=== PATIENT | female | born 1975 | race Caucasian/White ===

== ENCOUNTER 2020-12-01 14:30 | Emergency (ER) | payer MEDICAID ==
[~2020-12-01] VITALS: Ht 162.6 cm; Wt 63.5 kg
--- NOTE | 2020-12-01 15:20 | NUR ---
PATIENT STATES SHE HAS HAD A FEVER X 10 DAYS. DENIES SOB, OR DIZZINESS. STATES SHE HAD A COVID TEST RECENTLY WHICH WAS NEGATIVE. STATES SHE IS ON AMOXICILLIN. DENIES HEADACHE, LOSS OF SMELL OR TASTE.
== END 2020-12-01 18:08 | disposition home or self-care (01) ==
LOC: ER 14:36
DX: J06.9 Acute upper respiratory infection, unspecified (principal)
CPT/HCPCS: 71045; A4663

== ENCOUNTER 2022-07-25 16:00 | Emergency (ER) | payer MEDICAID ==
[~2022-07-25] VITALS: Ht 162.6 cm; Wt 64.4 kg
--- NOTE | 2022-07-25 16:36 | NUR ---
DR MANCILLA AT BEDSIDE FOR EVALUATION.
[2022-07-25] MEDS ORDERED: DULO30CA2 PO (16:40)
[2022-07-25] MEDS ORDERED: FERR325T30 PO (16:40)
[2022-07-25] MEDS ORDERED: LORA2TAB95 PO (16:40)
[2022-07-25] MEDS ORDERED: AMIT10TA6 PO (16:40)
[2022-07-25 17:04] LABS: HEMATOCRIT 38.6 % (31.2-41.9); MEAN CORPUSCULAR HEMOGLOBIN 26.7 uug (24.7-32.8); MEAN CORPUSCULAR VOLUME 81.5 fL (75.5-95.3); PLATELET COUNT (AUTO) 309 K/uL (179-408)
[2022-07-25 17:19] LABS: CARBON DIOXIDE 27 mmol/L (21-32); CHLORIDE 101 mmol/L (98-107); CREATININE 0.9 mg/dL (0.6-1.3); GLUCOSE 86 mg/dL (74-106); POTASSIUM 3.9 mmol/L (3.5-5.1); UREA NITROGEN, BLOOD 19 mg/dL (7-18)
[2022-07-25 17:25] LABS: ALANINE AMINOTRANSFERASE 98 U/L (14-59); ALKALINE PHOSPHATASE 59 U/L (50-136); ASPARTATE AMINOTRANSFERASE 36 U/L (15-37); BILIRUBIN,TOTAL 0.3 mg/dL (0.2-1.0); LIPASE 136 U/L (73-393); TOTAL PROTEIN, SERUM 8.1 g/dL (6.4-8.2)
--- NOTE | 2022-07-25 19:15 | NUR ---
Patient discharged to home in stable condition. Written and verbal after care instructions given. Patient verbalizes understanding of instructions. Stressed follow up or return to ER for worsening s/s.
== END 2022-07-25 19:15 | disposition home or self-care (01) ==
LOC: ER 16:00
DX: K92.0 Hematemesis (principal); J98.11 Atelectasis; F32.A Depression, unspecified; Z86.39 Personal history of other endocrine, nutritional and metabolic disease; Z87.898 Personal history of other specified conditions
CPT/HCPCS: 36415; 71045; 83690; 85025; A4663